=== PATIENT | female | born 2000 | race African-American/Black ===

== ENCOUNTER 2018-06-06 11:21 | Emergency (ER) | payer OTHER ==
[2018-06-06 12:00] LABS: BASO % 0.2 % (0.0-1.0); EOS # 0.1 10^3/uL (0.0-0.50); EOS % 1.3 % (0.0-3.0); HEMATOCRIT 38.2 % (36.0-47.0); HEMOGLOBIN 12.4 g/dl (12.0-15.5); LYMPH # 1.7 10^3/uL (1.5-6.5); LYMPH % 37.1 % (24.0-44.0); MEAN CORPUSCULAR HEMOGLOBIN 27.5 pg (27.0-33.0); MEAN CORPUSCULAR HGB CONC 32.5 g/dl (32.0-36.5); MEAN CORPUSCULAR VOLUME 84.7 fl (80.0-96.0); MONO # 0.4 10^3/uL (0.0-0.8); MONO % 9.3 % (0.0-5.0); NEUTROPHILS # 2.4 10^3/uL (1.8-7.7); NEUTROPHILS % 52.1 % (36.0-66.0); PLATELET COUNT, AUTOMATED 253 10^3/uL (150-450); RED BLOOD COUNT 4.51 10^6/uL (4.00-5.40); RED CELL DISTRIBUTION WIDTH 16.6 % (11.5-14.5); WHITE BLOOD COUNT 4.5 10^3/uL (4.0-10.0)
[2018-06-06] MEDS: KETOROLAC 30 MG/ML VIAL (J1885) IV (12:00)
[2018-06-06] MEDS: NS 1,000 ML IV (12:00)
[2018-06-06] MEDS: ONDANSETRON 4MG/2ML VIAL (J2405) IV (12:00)
[2018-06-06 12:10] LABS: HCG, SERUM QUANTITATIVE < 1.0 MIU/ML
[2018-06-06 12:11] LABS: ALBUMIN 3.8 GM/DL (3.2-5.2); ALKALINE PHOSPHATASE 70 U/L (45-117); ALT/SGPT 21 U/L (12-78); ANION GAP 6 MEQ/L (8-16); AST/SGOT 19 U/L (7-37); BILIRUBIN,TOTAL 0.4 MG/DL (0.2-1.0); BLOOD UREA NITROGEN 11 MG/DL (7-18); CARBON DIOXIDE LEVEL 29 MEQ/L (21-32); CHLORIDE LEVEL 106 MEQ/L (98-107); CREATININE FOR GFR 0.73 MG/DL (0.55-1.30); GLUCOSE, FASTING 94 MG/DL (70-100); POTASSIUM SERUM 4.1 MEQ/L (3.5-5.1); SODIUM LEVEL 141 MEQ/L (136-145); TOTAL PROTEIN 7.6 GM/DL (6.4-8.2)
[2018-06-06 13:27] LABS: KETONE, URINE AUTO RFX NEGATIVE (NEGATIVE); LEUKOCYTE ESTERASE UR AUTO RFX NEGATIVE (NEGATIVE); MUCUS, URINE RFX SMALL (NEGATIVE); NITRITE, URINE AUTO RFX NEGATIVE (NEGATIVE); RBC, URINE AUTO RFX 2 /HPF (0-3); SPECIFIC GRAVITY UR AUTO RFX 1.023 (1.002-1.035); SQUAM EPITHELIAL CELL UR AURFX 3 /HPF (0-6); WBC, URINE AUTO RFX 0 /HPF (0-3)
== END 2018-06-06 14:07 | disposition home or self-care (01) ==
LOC: M ED 11:21
DX: N94.6 Dysmenorrhea, unspecified (principal); N83.202 Unspecified ovarian cyst, left side
CPT/HCPCS: J2405

== ENCOUNTER 2018-07-18 07:05 | Emergency (ER) | payer OTHER ==
[2018-07-18] MEDS: ONDANSETRON 4 MG ORAL DISINTEGRATING TAB (Q0162 PER 1MG) PO (08:32)
[2018-07-18] MEDS: ACETAMINOPHEN 325 MG TAB PO (08:32)
[2018-07-18 08:51] LABS: BASO % 0.2 % (0.0-1.0); EOS % 0.7 % (0.0-3.0); HEMOGLOBIN 11.8 g/dl (12.0-15.5); IMMATURE GRANULOCYTE % 0.5 % (0-3.0); LYMPH # 1.5 10^3/uL (1.5-6.5); LYMPH % 25.5 % (24.0-44.0); MEAN CORPUSCULAR HEMOGLOBIN 29.6 pg (27.0-33.0); MEAN CORPUSCULAR HGB CONC 33.7 g/dl (32.0-36.5); MEAN CORPUSCULAR VOLUME 87.7 fl (80.0-96.0); MONO # 0.5 10^3/uL (0.0-0.8); MONO % 8.5 % (0.0-5.0); NEUTROPHILS # 3.8 10^3/uL (1.8-7.7); NEUTROPHILS % 64.6 % (36.0-66.0); PLATELET COUNT, AUTOMATED 237 10^3/uL (150-450); RED BLOOD COUNT 3.99 10^6/uL (4.00-5.40); RED CELL DISTRIBUTION WIDTH 14.6 % (11.5-14.5); WHITE BLOOD COUNT 5.9 10^3/uL (4.0-10.0)
[2018-07-18 08:54] LABS: KETONE, URINE AUTO RFX NEGATIVE (NEGATIVE); LEUKOCYTE ESTERASE UR AUTO RFX 1+ (NEGATIVE); MUCUS, URINE RFX SMALL (NEGATIVE); NITRITE, URINE AUTO RFX NEGATIVE (NEGATIVE); RBC, URINE AUTO RFX 1 /HPF (0-3); SPECIFIC GRAVITY UR AUTO RFX 1.019 (1.002-1.035); SQUAM EPITHELIAL CELL UR AURFX 2 /HPF (0-6); WBC, URINE AUTO RFX 1 /HPF (0-3)
[2018-07-18 09:29] LABS: ANION GAP 7 MEQ/L (8-16); BLOOD UREA NITROGEN 5 MG/DL (7-18); CALCIUM LEVEL 8.6 MG/DL (8.5-10.1); CARBON DIOXIDE LEVEL 26 MEQ/L (21-32); CHLORIDE LEVEL 106 MEQ/L (98-107); CREATININE FOR GFR 0.56 MG/DL (0.55-1.30); GLUCOSE, FASTING 78 MG/DL (70-100); HCG, SERUM QUANTITATIVE 83402 MIU/ML; POTASSIUM SERUM 3.6 MEQ/L (3.5-5.1); SODIUM LEVEL 139 MEQ/L (136-145)
== END 2018-07-18 09:57 | disposition home or self-care (01) ==
LOC: M ED 07:05
DX: O21.9 Vomiting of pregnancy, unspecified (principal); O26.891 Other specified pregnancy related conditions, first trimester; R10.2 Pelvic and perineal pain; Z3A.08 8 weeks gestation of pregnancy
CPT/HCPCS: Q0162

== ENCOUNTER 2018-08-27 09:17 | Inpatient (IN) | payer OTHER ==
[2018-08-27 09:46] LABS: HEMOGLOBIN 12.1 g/dl (12.0-15.5); MEAN CORPUSCULAR HEMOGLOBIN 28.3 pg (27.0-33.0); MEAN CORPUSCULAR HGB CONC 32.7 g/dl (32.0-36.5); MEAN CORPUSCULAR VOLUME 86.4 fl (80.0-96.0); PLATELET COUNT, AUTOMATED 351 10^3/uL (150-450); RED BLOOD COUNT 4.28 10^6/uL (4.00-5.40); WHITE BLOOD COUNT 6.1 10^3/uL (4.0-10.0)
[2018-08-27 10:24] LABS: AMPHETAMINES LEVEL URINE NEGATIVE (NEGATIVE); BARBITURATES URINE NEGATIVE (NEGATIVE); BENZODIAZEPINES URINE NEGATIVE (NEGATIVE); CANNABINOIDS URINE NEGATIVE (NEGATIVE); COCAINE METABOLITE URINE NEGATIVE (NEGATIVE); METHADONE URINE NEGATIVE (NEGATIVE); OPIATES URINE NEGATIVE (NEGATIVE); PHENCYCLIDINE URINE NEGATIVE (NEGATIVE)
[2018-08-27 10:45] LABS: ACETAMINOPHEN LEVEL < 2.0 UG/ML (10.0-30.0); ALBUMIN 4.1 GM/DL (3.2-5.2); ALBUMIN/GLOBULIN RATIO 1.05 (1.00-1.93); ALKALINE PHOSPHATASE 60 U/L (45-117); ALT/SGPT 17 U/L (12-78); ANION GAP 10 MEQ/L (8-16); AST/SGOT 17 U/L (7-37); BILIRUBIN,DIRECT 0.1 MG/DL (0.0-0.2); BILIRUBIN,TOTAL 0.3 MG/DL (0.2-1.0); BLOOD UREA NITROGEN 8 MG/DL (7-18); CALCIUM LEVEL 9.5 MG/DL (8.5-10.1); CARBON DIOXIDE LEVEL 21 MEQ/L (21-32); CHLORIDE LEVEL 110 MEQ/L (98-107); CREATININE FOR GFR 0.66 MG/DL (0.55-1.30); ETHYL ALCOHOL (ETHANOL) < 0.003 % (0.000-0.010); GLUCOSE, FASTING 83 MG/DL (70-100); POTASSIUM SERUM 4.2 MEQ/L (3.5-5.1); SALICYLATE LEVEL < 1.7 MG/DL (5.0-30.0); SODIUM LEVEL 141 MEQ/L (136-145); THYROID STIMULATING HORMONE 0.884 uIU/ML (0.463-3.98)
[2018-08-27 11:14] LABS: CONTROL LINE HCG INT CTR LINE PRESENT; HCG, SERUM QUALITATIVE POSITIVE (NEGATIVE)
[2018-08-27] MEDS ORDERED: traZODone 50 MG TAB PO (11:30)
[2018-08-27] MEDS ORDERED: MOM 30ML SUSPENSION UDC PO (11:30)
[2018-08-27] MEDS ORDERED: ACETAMINOPHEN TAB 650MG DOSE (2X325MG) PO (11:30)
[2018-08-27] MEDS ORDERED: MAALOX 30 ML SUSP *UDC PO (11:30)
[2018-08-27] MEDS: NICOTINE 21MG/24HR 1 EA TRANSDERMAL TD (12:39)
[2018-08-27] MEDS ORDERED: BACITRACIN OINT 30GM TOP (14:30)
[2018-08-27 15:16] LABS: HCG, SERUM QUANTITATIVE 23 MIU/ML
[2018-08-28] MEDS ORDERED: AVIANE PO (09:00)
[2018-08-28] MEDS: NICOTINE 21MG/24HR 1 EA TRANSDERMAL TD (09:31)
[2018-08-28] MEDS ORDERED: IBUPROFEN 600 MG TAB PO (11:00)
[2018-08-29] MEDS: NICOTINE 21MG/24HR 1 EA TRANSDERMAL TD (08:16)
[2018-08-30] MEDS: NICOTINE 21MG/24HR 1 EA TRANSDERMAL TD (09:00)
[2018-08-31] MEDS: NICOTINE 21MG/24HR 1 EA TRANSDERMAL TD (09:00)
== END 2018-08-31 11:30 | disposition home or self-care (01) | DRG 882 ==
LOC: M ED 09:17 → M ED INP 11:22 → M PSY 12:00
DX: F43.10 Post-traumatic stress disorder, unspecified (principal); F32.9 Major depressive disorder, single episode, unspecified; G47.00 Insomnia, unspecified; F41.9 Anxiety disorder, unspecified; F17.200 Nicotine dependence, unspecified, uncomplicated; Z79.899 Other long term (current) drug therapy

== ENCOUNTER 2018-10-24 19:37 | Emergency (ER) | payer OTHER ==
[2018-10-24 20:17] LABS: KETONE, URINE AUTO RFX TRACE mg/dL (NEGATIVE); MUCUS, URINE RFX LARGE (NEGATIVE); NITRITE, URINE AUTO RFX NEGATIVE (NEGATIVE); RBC, URINE AUTO RFX 0 /HPF (0-3); SPECIFIC GRAVITY UR AUTO RFX 1.027 (1.002-1.035); SQUAM EPITHELIAL CELL UR AURFX 4 /HPF (0-6); WBC, URINE AUTO RFX 5 /HPF (0-3)
[2018-10-24 20:30] LABS: LEUKOCYTE ESTERASE UR AUTO RFX 1+ (NEGATIVE)
[2018-10-24 21:19] LABS: BASO % 0.4 % (0.0-1.0); EOS # 0.1 10^3/uL (0.0-0.50); EOS % 1.2 % (0.0-3.0); HEMATOCRIT 37.5 % (36.0-47.0); HEMOGLOBIN 12.5 g/dl (12.0-15.5); LYMPH % 41.1 % (24.0-44.0); MEAN CORPUSCULAR HEMOGLOBIN 28.2 pg (27.0-33.0); MEAN CORPUSCULAR HGB CONC 33.3 g/dl (32.0-36.5); MEAN CORPUSCULAR VOLUME 84.7 fl (80.0-96.0); MONO # 0.4 10^3/uL (0.0-0.8); MONO % 8.2 % (0.0-5.0); NEUTROPHILS # 2.4 10^3/uL (1.8-7.7); NEUTROPHILS % 49.1 % (36.0-66.0); PLATELET COUNT, AUTOMATED 273 10^3/uL (150-450); RED BLOOD COUNT 4.43 10^6/uL (4.00-5.40); RED CELL DISTRIBUTION WIDTH 14.4 % (11.5-14.5); WHITE BLOOD COUNT 4.9 10^3/uL (4.0-10.0)
[2018-10-24 21:47] LABS: HCG, SERUM QUALITATIVE NEGATIVE (NEGATIVE)
[2018-10-24 21:48] LABS: CONTROL LINE HCG INT CTR LINE PRESENT
[2018-10-24] MEDS: AZITHROMYCIN 250 MG TAB PO (23:18)
[2018-10-24] MEDS: cefTRIAXone SOD 250 MG VIAL (J0696) IM (23:18)
[2018-10-24 23:50] LABS: CHLAMYDIA DNA AMPLIFICATION POSITIVE (NEGATIVE); GC DNA AMPLIFICATION NEGATIVE (NEGATIVE)
== END 2018-10-24 23:31 | disposition home or self-care (01) ==
LOC: M ED 19:37
DX: N72 Inflammatory disease of cervix uteri (principal)
CPT/HCPCS: J0696

== ENCOUNTER 2018-11-07 13:46 | Emergency (ER) | payer OTHER ==
[2018-11-07] MEDS: KETOROLAC 60 MG/2 ML VIAL (J1885) IM (16:30)
== END 2018-11-07 17:23 | disposition home or self-care (01) ==
LOC: M ED 13:46
DX: M25.561 Pain in right knee (principal); M25.562 Pain in left knee; Z79.899 Other long term (current) drug therapy; F17.210 Nicotine dependence, cigarettes, uncomplicated
CPT/HCPCS: 73564

== ENCOUNTER 2018-12-20 17:40 | Emergency (ER) | payer OTHER ==
[~2018-12-20] VITALS: Ht 157.5 cm; Wt 62.7 kg
[~2018-12-20 17:40] MED LIST: AVIATAB PO; DULC10SU2 PR; FLUO20CA19 PO; HYDR-3363 PO; NAPR-50 PO; NAPR-885 PO; VOLT1GEL15 TOP; ZOFR4TAB14 PO
[2018-12-20 17:41] VITALS: BP 127/82
[2018-12-21 15:29] LABS: CHLAMYDIA DNA AMPLIFICATION NEGATIVE (NEGATIVE); GC DNA AMPLIFICATION NEGATIVE (NEGATIVE)
== END 2018-12-20 18:33 | disposition home or self-care (01) ==
LOC: M ED 17:40
DX: Z04.89 Encounter for examination and observation for other specified reasons (principal); Z86.19 Personal history of other infectious and parasitic diseases

== ENCOUNTER 2019-01-29 10:33 | Emergency (ER) | payer OTHER ==
[~2019-01-29] VITALS: Ht 157.5 cm; Wt 63.6 kg
[2019-01-29] MEDS ORDERED: DIFL150T PO (11:41)
[2019-01-29 11:44] VITALS: BP 110/60
[2019-01-29 12:47] LABS: CHLAMYDIA DNA AMPLIFICATION NEGATIVE (NEGATIVE); GC DNA AMPLIFICATION NEGATIVE (NEGATIVE)
== END 2019-01-29 11:45 | disposition home or self-care (01) ==
LOC: M ED 10:33
DX: B37.3 Candidiasis of vulva and vagina (principal); Z86.19 Personal history of other infectious and parasitic diseases

== ENCOUNTER → 2019-02-08 | Outpatient (REF) | payer OTHER ==
[~2019-02-08] MED LIST changes: +DIFL150T PO
== END ==
LOC: M LAB REF 14:12
PROVIDERS: ATTEND Obstetrics & Gynecology
DX: N92.1 Excessive and frequent menstruation with irregular cycle (principal)

== ENCOUNTER → 2019-02-08 | Outpatient (CLI) | payer OTHER ==
--- NOTE | 2019-02-08 15:34 | REP ---
LEFT TIBIA/FIBULA, TWO VIEWS: HISTORY: Pain. There is no acute fracture or dislocation. The joint spaces are normal in appearance. IMPRESSION: There is no acute fracture or dislocation. Electronically Signed by Charan Lott MD 02/08/2019 03:36 P
== END ==
LOC: M LRY 14:59
PROVIDERS: ATTEND Nurse Practitioner Family
DX: S89.92XA Unspecified injury of left lower leg, initial encounter (principal); X58.XXXA Exposure to other specified factors, initial encounter; Y92.89 Other specified places as the place of occurrence of the external cause
CPT/HCPCS: 73590; 81025; G0463

== ENCOUNTER 2019-02-25 17:48 | Emergency (ER) | payer OTHER ==
[~2019-02-25] VITALS: Ht 157.5 cm; Wt 68.0 kg
[~2019-02-25 17:48] MED LIST changes: -NAPR-50 PO; +NAPR-837 PO
[2019-02-25 19:31] VITALS: BP 120/64
== END 2019-02-25 19:33 | disposition home or self-care (01) ==
LOC: M ED 17:48
DX: Z32.02 Encounter for pregnancy test, result negative (principal); R11.0 Nausea; D50.9 Iron deficiency anemia, unspecified; Z87.59 Personal history of other complications of pregnancy, childbirth and the puerperium; Z86.19 Personal history of other infectious and parasitic diseases; Z87.891 Personal history of nicotine dependence

== ENCOUNTER 2019-02-28 12:59 | Emergency (ER) | payer OTHER ==
[~2019-02-28] VITALS: Ht 157.5 cm; Wt 65.9 kg
--- NOTE | 2019-02-28 16:02 | REP ---
Clinical: Trauma/fall with midline tenderness . Technique: AP, lateral, bilateral oblique, and coned-down views. Findings: Alignment and lordosis is maintained. The vertebral bodies including transverse process and spinous processes are intact and normal. There is no evidence for acute fracture / compression injury or subluxation. No evidence for spondylolysis or spondylolisthesis. No significant degenerative change is noted. Impression: Normal lumbosacral spine radiograph series. Electronically Signed by Jhon Barakat MD 02/28/2019 03:54 P
--- NOTE | 2019-02-28 16:03 | REP ---
Clinical: Fall with midline thoracic pain. Technique: AP, lateral, and swimmers views. Findings: Alignment and kyphosis is maintained. Vertebral bodies intact. No acute fracture / compression injury or subluxation. No degenerative changes. Paravertebral soft tissues are normal. Impression: Normal thoracic spine series. Electronically Signed by Jhon Barakat MD 02/28/2019 03:55 P
[2019-02-28] MEDS ORDERED: KETOROLAC 60 MG/2 ML VIAL (J1885) IM ONE (16:15)
[2019-02-28] MEDS ORDERED: METHOCARBAMOL 500 MG TAB PO ONE (16:15)
[2019-02-28 16:28] VITALS: BP 117/68
[2019-02-28] MEDS ORDERED: NAPR-885 PO (16:29)
[2019-02-28] MEDS ORDERED: ROBA500T PO (16:30)
== END 2019-02-28 16:34 | disposition home or self-care (01) ==
LOC: M ED 12:59
DX: M54.9 Dorsalgia, unspecified (principal); W19.XXXA Unspecified fall, initial encounter; Y92.9 Unspecified place or not applicable; Y93.9 Activity, unspecified; Y99.9 Unspecified external cause status; F41.9 Anxiety disorder, unspecified
CPT/HCPCS: 72072; 72110; 96372; 99283; J1885

== ENCOUNTER → 2019-07-28 | Outpatient (CLI) | payer OTHER ==
[~2019-07-28] MED LIST changes: +ACET1TAB16; +IBUP80TA PO; +ROBA500T PO
--- NOTE | 2019-07-28 22:43 | REP ---
Clinical: Dating and viability. Technique: Transabdominal first trimester obstetrical ultrasound with color Doppler evaluation. Findings: Single live early intrauterine is appreciated. Gestational sac with yolk sac and pole identified. [place]-rump length of 5 mm corresponds to 6 weeks 2 days gestational age with estimated date of delivery 03/20/2020 . heart rate equals 111 beats per minute. No gross abnormalities are identified. Impression: Single live early intrauterine at 6 weeks 2 days gestational age. Complete anatomical assessment should be performed and 19-20 weeks. Electronically Signed by Jhon Barakat MD 07/28/2019 10:34 P
== END ==
LOC: M RAD 11:22
PROVIDERS: ATTEND Nurse Practitioner Family
DX: Z36.9 Encounter for antenatal screening, unspecified (principal); Z3A.01 Less than 8 weeks gestation of pregnancy

== ENCOUNTER 2019-08-09 12:00 | Emergency (ER) | payer OTHER ==
[~2019-08-09] VITALS: Ht 157.5 cm; Wt 57.3 kg
[~2019-08-09 12:00] MED LIST changes: -ACET1TAB16; -IBUP80TA PO
[2019-08-09] MEDS ORDERED: ACET1TAB16 (12:07)
[2019-08-09 13:08] LABS: BASO % 0.1 % (0.0-1.0); EOS # 0.1 10^3/uL (0.0-0.5); EOS % 0.7 % (0.0-3.0); HEMATOCRIT 33.6 % (36.0-47.0); HEMOGLOBIN 11.4 g/dl (12.0-15.5); LYMPH # 1.8 10^3/uL (1.5-5.0); LYMPH % 26.1 % (24.0-44.0); MEAN CORPUSCULAR HEMOGLOBIN 30.2 pg (27.0-33.0); MEAN CORPUSCULAR HGB CONC 33.9 g/dl (32.0-36.5); MEAN CORPUSCULAR VOLUME 89.1 fl (80.0-96.0); MONO # 0.6 10^3/uL (0.0-0.8); MONO % 8.3 % (0.0-5.0); NEUTROPHILS # 4.4 10^3/uL (1.5-8.5); NEUTROPHILS % 64.5 % (36.0-66.0); PLATELET COUNT, AUTOMATED 226 10^3/uL (150-450); RED BLOOD COUNT 3.77 10^6/uL (4.00-5.40); WHITE BLOOD COUNT 6.9 10^3/uL (4.0-10.0)
[2019-08-09] MEDS ORDERED: MORPHINE 4 MG/ML 1ML VIAL/SYRINGE (J2270) IV ONE (14:00)
[2019-08-09] MEDS ORDERED: NS 1,000 ML IV ONE (14:00)
--- NOTE | 2019-08-09 14:16 | REP ---
PELVIC ULTRASOUND: Real-time sonographic evaluation of pelvis performed utilizing transabdominal and endovaginal technique. Bladder is collapsed. Uterus measures 8.8 x 4.5 x 6.2 cm. The endometrium is thickened and heterogeneous 18 mm in maximum AP dimension. Right ovary measures 4.0 x 1.5 x 2.9 cm and contains a complex dominant follicle 1.9 x 1.3 x 1.8 cm. Left ovary measures 3.2 x 0.9 x 2.2 cm. There is an adjacent left adnexal cyst, possibly a paraovarian cyst, measuring 1.1 cm. There is mild free fluid. There is no evidence of ovarian torsion bilaterally. IMPRESSION: Thickened heterogeneous endometrium 18 mm in AP thickness. Complex dominant follicle right ovary 1.9 cm. Mild free fluid. No torsion. Left adnexal cyst, 1.1 cm in diameter may represent a paraovarian cyst. Electronically Signed by Christian Cardoza MD 08/10/2019 04:53 P
[2019-08-09 14:56] VITALS: BP 110/78
[2019-08-09] MEDS ORDERED: ACETAMINOPHEN TAB 650MG DOSE (2X325MG) PO ONE (15:00)
[2019-08-09 15:28] LABS: BLOOD UREA NITROGEN 5 MG/DL (7-18); CARBON DIOXIDE LEVEL 28 MEQ/L (21-32); CHLORIDE LEVEL 106 MEQ/L (98-107); CREATININE FOR GFR 0.59 MG/DL (0.55-1.30); GLOMERULAR FILTRATION RATE > 60.0 (>60); GLUCOSE, FASTING 83 MG/DL (70-100); HCG, SERUM QUANTITATIVE 1052 MIU/ML; POTASSIUM SERUM 3.8 MEQ/L (3.5-5.1); SODIUM LEVEL 140 MEQ/L (136-145)
[2019-08-09] MEDS ORDERED: IBUP80TA PO (15:28)
== END 2019-08-09 16:00 | disposition home or self-care (01) ==
LOC: M ED 12:00
DX: O20.0 Threatened abortion (principal); O99.011 Anemia complicating pregnancy, first trimester; O99.341 Other mental disorders complicating pregnancy, first trimester; F41.9 Anxiety disorder, unspecified; Z3A.01 Less than 8 weeks gestation of pregnancy
CPT/HCPCS: 36415; 76830; 76856; 80048; 81001; 84702; 85025; 86850; 86900; 86901; 87086; 93976; 96361; 96374; 99284; J2270